=== PATIENT | female | born 1985 | race Caucasian/White ===

== ENCOUNTER 2017-05-06 18:34 | Emergency (ER) ==
[2017-05-06 18:37] VITALS: BP 136/86; TEMP 99.6; BMI 25.0
[2017-05-06] MEDS ORDERED: KEFLEX PO STA (19:24)
[2017-05-06] MEDS ORDERED: BACTRIM DS 800/160 MG PO STA (19:24)
[2017-05-06] MEDS ORDERED: TORADOL IM STA (19:24)
--- NOTE | 2017-05-06 19:25 | ED.PDOC ---
General ED Provider: Dr. YESSI CHERRY Chief Complaint: Abscess Stated Complaint: +In grown hair in the right groin area, red, painful. Time Seen by Physician: 19:24 Mode of Arrival: Walk-In Information Source: Patient Primary Care Provider: YESSI CHERRY-[facility] Nursing and Triage Documentation Reviewed and Agree: Yes Skin Complaint Exam - Skin/Soft Tissue Complaint/Exam Symptoms Are: Still present Timing: Constant Initial Severity: Mild Current Severity: Mild Character: Reports: Redness, Swelling, Painful Aggravating: Reports: Touch Alleviating: Reports: None Associated Signs and Symptoms: Reports: Drainage, Tenderness. Denies: Fever, Chills, Itching, Bruising, Red streaks, Joint swelling Related Surgical History: Reports: None Recent Exposure to Others w/Similar Symptoms: Yes Skin Findings: Present: Erythema, Induration. Absent: Fluctuant mass Differential Diagnoses: Abscess Review of Systems - Review Of Systems Constitutional: Reports: No symptoms Eyes: Reports: No symptoms Ears, Nose, Mouth, Throat: Reports: No symptoms Respiratory: Reports: No symptoms Cardiac: Reports: No symptoms GI: Reports: No symptoms : Reports: No symptoms Musculoskeletal: Reports: No symptoms Skin: Reports: No symptoms Neurological: Reports: No symptoms Endocrine: Reports: No symptoms Hematologic/Lymphatic: Reports: No symptoms All Other Systems: Reviewed and Negative Past Medical History - Past Medical History Previously Healthy: Yes Endocrine: Reports: None Cardiovascular: Reports: None Respiratory: Reports: None Hematological: Reports: None Gastrointestinal: Reports: None Genitourinary: Reports: None Neuro/Psych: Reports: None Musculoskeletal: Reports: None Cancer: Reports: None Last Menstrual Period: first of month - Surgical History General Surgical History: Reports: None - Family History Family History: Reports: None - Social History Smoking Status: Current every day smoker, Heavy tobacco smoker Smoking Cessation Counseling Time: > 10 min Hx Substance Use: No Alcohol Screening: None Physical Exam - Physical Exam Appearance: Well-appearing, No pain distress, Well-nourished Eyes: TOSHIA, EOMI, Conjunctiva clear ENT: Ears normal, Nose normal, Oropharynx normal Respiratory: Airway patent, Breath sounds clear, Breath sounds equal, Respirations nonlabored Cardiovascular: RRR, Pulses normal, No rub, No murmur GI/: Soft, Nontender, No masses, Bowel sounds normal, No Organomegaly Musculoskeletal: Normal strength, ROM intact, No edema, No calf tenderness Skin: Warm, Dry, Normal color Neurological: Sensation intact, Motor intact, Reflexes intact, Cranial nerves intact, Alert, Oriented Psychiatric: Affect appropriate, Mood appropriate Critical Care Note - Critical Care Note Total Time (mins): 0 Course - Course Vital Signs: Temp Pulse Resp BP Pulse Ox 05/06/17 18:34 99.6 F 109 H 20 136/86 97 Departure - Departure Time of Disposition: 19:29 Disposition: HOME SELF-CARE Discharge Problem: Abscess Instructions: Abscess (ED) Condition: Good Pt referred to PMD for follow-up: Yes Additional Instructions: Hot compress. Take medication with food. F/u with [facility] in 2-3 days\ Prescriptions: Cephalexin [Keflex] 500 mg PO Q12HR #20 capsule Sulfamethoxazole/Trimethoprim [Bactrim Ds 800/160 mg] 1 tab PO Q12HR #20 tablet Allergies/Adverse Reactions: Allergies latex Adverse Reaction (Verified 05/06/17 18:37) Home Medications: Ambulatory Orders Cephalexin [Keflex] 500 mg PO Q12HR #20 capsule 05/06/17 Hydroxyzine Pamoate [Vistaril] 50 mg PO BEDTIME 05/06/17 Methadone HCl [Methadone] 130 mg PO DAILY 05/06/17 Sulfamethoxazole/Trimethoprim [Bactrim Ds 800/160 mg] 1 tab PO Q12HR #20 tablet 05/06/17 Disposition Discussed With: Patient, Family
== END 2017-05-06 19:56 | disposition home or self-care (01) ==
LOC: ED 18:34
DX: L02.214 Cutaneous abscess of groin (principal); F17.210 Nicotine dependence, cigarettes, uncomplicated
CPT/HCPCS: 96372; 99282

== ENCOUNTER 2018-10-01 16:53 | Emergency (ER) | payer MEDICAID, OTHER ==
[2018-10-01 16:58] VITALS: BP 140/85; TEMP 96.9; BMI 29.0
--- NOTE | 2018-10-01 17:30 | ED.PDOC ---
General ED Provider: Dr. ELIAS CHRISTIAN Chief Complaint: Tooth Problem Stated Complaint: gums are hurting Time Seen by Physician: 17:48 Mode of Arrival: Walk-In Information Source: Patient Exam Limitations: No limitations Primary Care Provider: RENEE LAGUNA Referred to ED by: Other Nursing and Triage Documentation Reviewed and Agree: Yes Does patient meet sepsis criteria?: No System Inflammatory Response Syndrome: Not Applicable Sepsis Protocol: For patient's 13 years and over: Temp is 96.8 and below OR 101 and greater Pulse >90 BPM Resp >20/minute Acutely Altered Mental Status Are patient's symptoms suggestive of a new infection, such as: -Pneumonia -Skin, Soft Tissue -Endocarditis -UTI -Bone, Joint Infection -Implantable Device -Acute Abdominal Infection -Wound Infection -Meningitis -Blood Stream Catheter Infection -Unknown Miscellaneous Complaint Exam - Complex/Multi-System Complaint/Exam Onset/Duration: not known Symptoms Are: Still present Episodes Lasting: Days Initial Severity: Mild Current Severity: Mild Location of Pain: gums Pain Radiates to: in oral cavity Associated Signs and Symptoms: Reports: Headache, Decreased oral intake Related History: Similar Episode/Dx Respiratory Distress: None JVD Present: No Tachypnea Present: No Stridor Present: No Abdominal Findings: Present: Normal findings Meningeal Signs Positive: No Focal Weakness: Present: None Focal Sensory Loss: Present: None Gait: Normal Gag Reflex Present: Yes Skin Findings: Present: Normal findings Joint Swelling Present: No In-Dwelling Device Present: No Review of Systems - Review Of Systems Constitutional: Reports: No symptoms Eyes: Reports: No symptoms Ears, Nose, Mouth, Throat: Reports: No symptoms Respiratory: Reports: No symptoms Cardiac: Reports: No symptoms GI: Reports: No symptoms : Reports: No symptoms Musculoskeletal: Reports: No symptoms Skin: Reports: No symptoms Neurological: Reports: No symptoms Endocrine: Reports: No symptoms Hematologic/Lymphatic: Reports: No symptoms All Other Systems: Reviewed and Negative Past Medical History - Past Medical History Previously Healthy: Yes Endocrine: Reports: None Cardiovascular: Reports: None Respiratory: Reports: None Hematological: Reports: None Gastrointestinal: Reports: None Genitourinary: Reports: None Neuro/Psych: Reports: None Musculoskeletal: Reports: None Cancer: Reports: None Last Menstrual Period: 1 week ago - Surgical History General Surgical History: Reports: None - Family History Family History: Reports: None - Social History Smoking Status: Current every day smoker, Heavy tobacco smoker 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) Alcohol Screening: None Physical Exam - Physical Exam Appearance: Well-appearing Ill-appearing: None Pain Distress: Mild Eyes: TOSHIA ENT: Ears normal Neck: Supple Respiratory: Airway patent GI/: Soft Musculoskeletal: Normal strength Skin: Warm Neurological: Sensation intact Critical Care Note - Critical Care Note Total Time (mins): 0 Course - Course Orders, Labs, Meds: Orders Category Date Time Status Ketorolac Tromethamine [Toradol] MEDS 10/01/18 17:36 Discontinued 60 mg IM ONCE STA Medications Discontinued Medications Generic Name Dose Route Start Last Admin Trade Name Freq PRN Reason Stop Dose Admin Ketorolac Tromethamine 60 mg 10/01/18 17:36 Toradol IM 10/01/18 17:37 ONCE STA Vital Signs: Temp Pulse Resp BP Pulse Ox 10/01/18 16:55 96.9 F L 95 H 20 140/85 99 Departure - Departure Time of Disposition: 17:47 Disposition: HOME SELF-CARE Discharge Problem: Pain of gingiva Instructions: Gingivostomatitis (ED) Condition: Good Pt referred to PMD for follow-up: Yes (follow with dentist-hygenist or oral Sx) IPMP verified?: No Allergies/Adverse Reactions: Allergies latex Adverse Reaction (Verified 10/01/18 16:57) Home Medications: Ambulatory Orders 1 [No Reported Medications] 10/01/18 Disposition Discussed With: Patient
[2018-10-01] MEDS ORDERED: TORADOL IM STA (17:36)
== END 2018-10-01 18:03 | disposition home or self-care (01) ==
LOC: ED 16:53
DX: K08.89 Other specified disorders of teeth and supporting structures (principal); K06.9 Disorder of gingiva and edentulous alveolar ridge, unspecified
CPT/HCPCS: 96372; 99282